=== PATIENT | female | born 1965 | race Caucasian/White ===

== ENCOUNTER 2021-07-07 20:04 | Emergency (ER) | payer MEDICAID, OTHER ==
[~2021-07-07] VITALS: Ht 162.6 cm; Wt 118.0 kg
[2021-07-07 20:11] VITALS: BP 138/90
[2021-07-07] MEDS ORDERED: AMOX-424 MT (22:32)
== END 2021-07-07 22:59 | disposition home or self-care (01) ==
LOC: ER 20:04
DX: S75.8 Injury of other blood vessels at hip and thigh level (principal); I83.891 Varicose veins of right lower extremity with other complications; W55.03XA Scratched by cat, initial encounter; Y93.89 Activity, other specified; Y92.018 Other place in single-family (private) house as the place of occurrence of the external cause; R03.0 Elevated blood-pressure reading, without diagnosis of hypertension
CPT/HCPCS: 12001; 99283